=== PATIENT | male | born 1975 | race Caucasian/White ===

== ENCOUNTER 2017-10-26 17:20 | Emergency (ER) | payer BC, OTHER ==
[2017-10-26] MEDS ORDERED: Sodium Chloride 0.9% 10 ML Syringe FLUSH PRN (17:29)
--- NOTE | 2017-10-26 17:29 | EDM.PDOC ---
ED HPI GENERAL MEDICAL PROBLEM - General Chief Complaint: Syncope Stated Complaint: Syncopal episode Time Seen by Provider: 10/26/17 17:20 Source of Information: Reports: Patient, EMS History Limitations: Reports: No Limitations - History of Present Illness INITIAL COMMENTS - FREE TEXT/NARRATIVE: 42 y.o.w.m came to the ed by EMS after he passed out at work. New event. . No trauma. Pt remembers the moment when his coworker looking at him as he was laying on the floor. He is not sure for how long he passed out. This the first time he had a syncopal episode. No tonic clonic movements. As the ems arrived, the patient was OX3, but felt weak. Pt drinks several cups of coffee, coke etc, little water. There was no urinary incontinence, no tongue bite. 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 BP 125/70 Pulse 72 RR 20 Pulse ox 100% Temp was not taken when this note was written. Please check the nursing note. Onset Date: 10/26/17 Onset Time: 16:00 Duration: Minutes:, Improving Location: Reports: Generalized Quality: Reports: Other (passed out at work) Severity: Moderate Improves with: Reports: Rest Worsens with: Reports: Movement Context: Reports: Other (passed out at work) Associated Symptoms: Reports: Syncope - Related Data Allergies Allergy/AdvReac Type Severity Reaction Status Date / Time No Known Allergies Allergy Verified 10/26/17 17:34 Home Meds: Home Meds Levothyroxine 125 mcg PO DAILY 06/02/13 [History] PARoxetine [Paxil] 10 mg PO DAILY 06/02/13 [History] busPIRone [Buspar] 15 mg PO DAILY 10/26/17 [History] hydrOXYzine HCl [Atarax] 50 mg PO DAILY 10/26/17 [History] Social & Family History - Tobacco Use Years of Tobacco use: 21 - Alcohol Use Days Per Week of Alcohol Use: 2 Number of Drinks Per Day: 4 Total Drinks Per Week: 8 - Recreational Drug Use Recreational Drug Use: No ED ROS GENERAL - Review of Systems Review Of Systems: See Below Constitutional: Reports: No Symptoms HEENT: Reports: No Symptoms Respiratory: Reports: No Symptoms Cardiovascular: Reports: No Symptoms Endocrine: Reports: No Symptoms GI/Abdominal: Reports: No Symptoms : Reports: No Symptoms Musculoskeletal: Reports: Muscle Pain, Other (right hip pain) Skin: Reports: No Symptoms Neurological: Reports: No Symptoms Psychiatric: Reports: No Symptoms Hematologic/Lymphatic: Reports: No Symptoms Immunologic: Reports: No Symptoms ED EXAM, NEURO - Physical Exam Exam: See Below Exam Limited By: No Limitations General Appearance: Alert, WD/WN, No Apparent Distress Eye Exam: Bilateral Eye: Normal Inspection Ears: Normal External Exam Nose: Normal Inspection, Normal Mucosa Throat/Mouth: Normal Lips, No Airway Compromise, Other (dry mucosal membranes) Head Exam: Atraumatic, Normocephalic Neck: Normal Inspection, Supple, Non-Tender, Full Range of Motion Respiratory/Chest: No Respiratory Distress, Lungs Clear, Normal Breath Sounds Cardiovascular: Normal Peripheral Pulses, Regular Rate, Rhythm, No Edema GI/Abdominal: Normal Bowel Sounds, Soft, Non-Tender, No Organomegaly (Male) Exam: No Hernia, Normal Inspection Rectal (Males) Exam: Deferred Neurological: Alert, Normal Mood/Affect, Normal Dorsiflexion, CN II-XII Intact, Normal Plantar Flexion, No Motor/Sensory Deficits, Oriented x 3, Other (gait not tested initially) Back Exam: Normal Inspection, Full Range of Motion Extremities: Normal Inspection, Normal Range of Motion, Non-Tender, No Pedal Edema Psychiatric: Normal Affect, Normal Mood Skin Exam: Warm, Dry, Intact, Normal Color, No Rash EKG INTERPRETATION EKG Date: 10/26/17 Time: 19:40 Rhythm: NSR Rate (Beats/Min): 67 [place]: Normal P-Wave: Present QRS: Normal ST-T: Normal QT: Normal Comparison: NA - No Prior EKG Course - Vital Signs Text/Narrative:: 42 y.o.w.m came to the ed by EMS after he passed out at work. New event. . No trauma. Pt remembers the moment when his coworker looking at him as he was laying on the floor. He is not sure for how long he passed out. This the first time he had a syncopal episode. No tonic clonic movements. As the ems arrived, the patient was OX3, but felt weak. Pt drinks several cups of coffee, coke etc, little water. There was no urinary incontinence, no tongue bite. Pt has some discomfort at his right lat hip/trochanter. No F/C no N/V/D or any other acute medical issues. BP 125/70 Pulse 72 RR 20 Pulse ox 100% Temp was not taken when this note was written. Please check the nursing note. PE: 42 y.o.w m s/p syncopal episode. No T/C activity, no Sz like symptoms, feels thirsty, with right hip pain, no open wound. Imaging: Pelvis/right hip: NAD Labs: CBC, BMP UDS were neg. His TSH was 10.38 Impression: Syncopal episode DDx Sz. Elevated TSH level, Trochanter tendonitis ( R) Tx: 2 liters of NS, Toradol Reexam: Pt was doing fine, was amulating fine, pain right hip improved 90% Plan: D/C with instructions Addendum: TSH level came back after pt was d/c'd. I have informed the on 9.02 am Last Recorded V/S: Last Vital Signs Temp 36.6 C 10/26/17 17:20 Pulse 62 10/26/17 19:30 Resp 19 10/26/17 19:30 BP 124/73 10/26/17 19:30 Pulse Ox 100 10/26/17 19:30 - Orders/Labs/Meds Labs: Laboratory Tests 10/26/17 10/26/17 10/26/17 Range/Units 18:00 18:00 18:04 WBC 9.7 (4.5-12.0) X10-3/uL RBC 4.81 (4.30-5.75) x10(6)uL Hgb 14.7 (11.5-15.5) g/dL Hct 42.7 (30.0-51.3) % MCV 88.7 (80-96) fL MCH 30.6 (27.7-33.6) pg MCHC 34.5 (32.2-35.4) g/dL RDW 11.9 (11.5-15.5) % Plt Count 225 (125-369) X10(3)uL MPV 7.8 (7.4-10.4) fL Neut % (Auto) 84.7 H (46-82) % Lymph % (Auto) 10.0 L (13-37) % [place] % (Auto) 4.5 (4-12) % Eos % (Auto) 0 L (1.0-5.0) % Baso % (Auto) 1 (0-2) % Neut # (Auto) 8.2 (1.6-8.3) # Lymph # (Auto) 1.0 (0.6-5.0) # [place] # (Auto) 0.4 (0.0-1.3) # Eos # (Auto) 0.0 (0.0-0.8) # Baso # (Auto) 0.1 (0.0-0.2) # PT (8.7-11.1) INR (0.89-1.13) Sodium (135-145) mmol/L Potassium (3.5-5.3) mmol/L Chloride (100-110) mmol/L Carbon Dioxide (21-32) mmol/L BUN (7-18) mg/dL Creatinine (0.70-1.30) mg/dL Est Cr Clr Drug Dosing Estimated GFR (MDRD) (>60) BUN/Creatinine Ratio (9-20) Glucose (80-116) mg/dL Calcium (8.6-10.2) mg/dL Total Bilirubin (0.1-1.3) mg/dL Direct Bilirubin (0.10-0.20) mg/dL AST (5-25) IU/L ALT (12-36) U/L Alkaline Phosphatase (56-112) IU/L NT-Pro-B Natriuret Pep (<=125) pg/mL Total Protein (6.0-8.0) g/dL Albumin (3.5-5.2) g/dL Amylase (25-115) U/L TSH, Ultra Sensitive (0.36-3.74) IU/mL Urine Color Yellow (YELLOW) Urine Appearance Clear (CLEAR) Urine pH 6.5 (5.0-6.5) Ur Specific [place] 1.020 (1.010-1.025) Urine Protein Negative (NEGATIVE) mg/dL Urine Glucose (UA) Normal (NEGATIVE) mg/dL Urine Ketones Negative (NEGATIVE) mg/dL Urine Occult Blood Negative (NEGATIVE) Urine Nitrite Negative (NEGATIVE) Urine Bilirubin Negative (NEGATIVE) Urine Urobilinogen Normal (NEGATIVE) mg/dL Ur Leukocyte Esterase Negative (NEGATIVE) Urine RBC 0-5 (0) Urine WBC 0-5 (0) Ur Squamous Epith Cells Rare (NS,R,O) Urine Bacteria Few H (NS) Salicylates (2.8-20.0) mg/dL Urine Opiates Screen Negative (NEGATIVE) Ur Oxycodone Screen Negative (NEGATIVE) Ur Propoxyphene Screen Negative (NEGATIVE) Acetaminophen (10-30) ug/mL Ur Barbituates Screen Negative (NEGATIVE) Ur Tricyclics Screen Negative (NEGATIVE) Ur Phencyclidine Scrn Negative (NEGATIVE) Ur Amphetamine Screen Negative (NEGATIVE) Urine MDMA Screen Negative (NEGATIVE) U Benzodiazepines Scrn Negative (NEGATIVE) U Cocaine Metab Screen Negative (NEGATIVE) U Marijuana (THC) Screen Negative (NEGATIVE) Ethyl Alcohol (<0.03) % 10/26/17 10/26/17 10/26/17 Range/Units 18:04 18:04 18:04 WBC (4.5-12.0) X10-3/uL RBC (4.30-5.75) x10(6)uL Hgb (11.5-15.5) g/dL Hct (30.0-51.3) % MCV (80-96) fL MCH (27.7-33.6) pg MCHC (32.2-35.4) g/dL RDW (11.5-15.5) % Plt Count (125-369) X10(3)uL MPV (7.4-10.4) fL Neut % (Auto) (46-82) % Lymph % (Auto) (13-37) % [place] % (Auto) (4-12) % Eos % (Auto) (1.0-5.0) % Baso % (Auto) (0-2) % Neut # (Auto) (1.6-8.3) # Lymph # (Auto) (0.6-5.0) # [place] # (Auto) (0.0-1.3) # Eos # (Auto) (0.0-0.8) # Baso # (Auto) (0.0-0.2) # PT 10.8 (8.7-11.1) INR 1.07 (0.89-1.13) Sodium 137 (135-145) mmol/L Potassium 3.9 (3.5-5.3) mmol/L Chloride 101 (100-110) mmol/L Carbon Dioxide 30 (21-32) mmol/L BUN 12 (7-18) mg/dL Creatinine 1.1 (0.70-1.30) mg/dL Est Cr Clr Drug Dosing TNP Estimated GFR (MDRD) > 60 (>60) BUN/Creatinine Ratio 10.9 (9-20) Glucose 113 (80-116) mg/dL Calcium 9.0 (8.6-10.2) mg/dL Total Bilirubin (0.1-1.3) mg/dL Direct Bilirubin (0.10-0.20) mg/dL AST (5-25) IU/L ALT (12-36) U/L Alkaline Phosphatase (56-112) IU/L NT-Pro-B Natriuret Pep (<=125) pg/mL Total Protein (6.0-8.0) g/dL Albumin (3.5-5.2) g/dL Amylase (25-115) U/L TSH, Ultra Sensitive (0.36-3.74) IU/mL Urine Color (YELLOW) Urine Appearance (CLEAR) Urine pH (5.0-6.5) Ur Specific [place] (1.010-1.025) Urine Protein (NEGATIVE) mg/dL Urine Glucose (UA) (NEGATIVE) mg/dL Urine Ketones (NEGATIVE) mg/dL Urine Occult Blood (NEGATIVE) Urine Nitrite (NEGATIVE) Urine Bilirubin (NEGATIVE) Urine Urobilinogen (NEGATIVE) mg/dL Ur Leukocyte Esterase (NEGATIVE) Urine RBC (0) Urine WBC (0) Ur Squamous Epith Cells (NS,R,O) Urine Bacteria (NS) Salicylates 2.5 L (2.8-20.0) mg/dL Urine Opiates Screen (NEGATIVE) Ur Oxycodone Screen (NEGATIVE) Ur Propoxyphene Screen (NEGATIVE) Acetaminophen < 2 L (10-30) ug/mL Ur Barbituates Screen (NEGATIVE) Ur Tricyclics Screen (NEGATIVE) Ur Phencyclidine Scrn (NEGATIVE) Ur Amphetamine Screen (NEGATIVE) Urine MDMA Screen (NEGATIVE) U Benzodiazepines Scrn (NEGATIVE) U Cocaine Metab Screen (NEGATIVE) U Marijuana (THC) Screen (NEGATIVE) Ethyl Alcohol < 0.03 (<0.03) % 10/26/17 10/26/17 10/26/17 Range/Units 18:04 18:04 18:04 WBC (4.5-12.0) X10-3/uL RBC (4.30-5.75) x10(6)uL Hgb (11.5-15.5) g/dL Hct (30.0-51.3) % MCV (80-96) fL MCH (27.7-33.6) pg MCHC (32.2-35.4) g/dL RDW (11.5-15.5) % Plt Count (125-369) X10(3)uL MPV (7.4-10.4) fL Neut % (Auto) (46-82) % Lymph % (Auto) (13-37) % [place] % (Auto) (4-12) % Eos % (Auto) (1.0-5.0) % Baso % (Auto) (0-2) % Neut # (Auto) (1.6-8.3) # Lymph # (Auto) (0.6-5.0) # [place] # (Auto) (0.0-1.3) # Eos # (Auto) (0.0-0.8) # Baso # (Auto) (0.0-0.2) # PT (8.7-11.1) INR (0.89-1.13) Sodium (135-145) mmol/L Potassium (3.5-5.3) mmol/L Chloride (100-110) mmol/L Carbon Dioxide (21-32) mmol/L BUN (7-18) mg/dL Creatinine (0.70-1.30) mg/dL Est Cr Clr Drug Dosing Estimated GFR (MDRD) (>60) BUN/Creatinine Ratio (9-20) Glucose (80-116) mg/dL Calcium (8.6-10.2) mg/dL Total Bilirubin 0.6 (0.1-1.3) mg/dL Direct Bilirubin 0.12 (0.10-0.20) mg/dL AST 31 H (5-25) IU/L ALT 32 (12-36) U/L Alkaline Phosphatase 98 (56-112) IU/L NT-Pro-B Natriuret Pep 225 H (<=125) pg/mL Total Protein 7.9 (6.0-8.0) g/dL Albumin 3.7 (3.5-5.2) g/dL Amylase 45 (25-115) U/L TSH, Ultra Sensitive 10.38 H* (0.36-3.74) IU/mL Urine Color (YELLOW) Urine Appearance (CLEAR) Urine pH (5.0-6.5) Ur Specific [place] (1.010-1.025) Urine Protein (NEGATIVE) mg/dL Urine Glucose (UA) (NEGATIVE) mg/dL Urine Ketones (NEGATIVE) mg/dL Urine Occult Blood (NEGATIVE) Urine Nitrite (NEGATIVE) Urine Bilirubin (NEGATIVE) Urine Urobilinogen (NEGATIVE) mg/dL Ur Leukocyte Esterase (NEGATIVE) Urine RBC (0) Urine WBC (0) Ur Squamous Epith Cells (NS,R,O) Urine Bacteria (NS) Salicylates (2.8-20.0) mg/dL Urine Opiates Screen (NEGATIVE) Ur Oxycodone Screen (NEGATIVE) Ur Propoxyphene Screen (NEGATIVE) Acetaminophen (10-30) ug/mL Ur Barbituates Screen (NEGATIVE) Ur Tricyclics Screen (NEGATIVE) Ur Phencyclidine Scrn (NEGATIVE) Ur Amphetamine Screen (NEGATIVE) Urine MDMA Screen (NEGATIVE) U Benzodiazepines Scrn (NEGATIVE) U Cocaine Metab Screen (NEGATIVE) U Marijuana (THC) Screen (NEGATIVE) Ethyl Alcohol (<0.03) % Meds: Medications Discontinued Medications Generic Name Dose Route Start Last Admin Trade Name Freq PRN Reason Stop Dose Admin Sodium Chloride 1,000 mls @ 999 mls/hr 10/26/17 17:32 10/26/17 17:50 Normal Saline IV 10/26/17 18:32 999 mls/hr .BOLUS ONE Administration Sodium Chloride 1,000 mls @ 999 mls/hr 10/26/17 19:08 10/26/17 18:55 Normal Saline IV 10/26/17 20:08 999 mls/hr .BOLUS ONE Administration Ketorolac Tromethamine 30 mg 10/26/17 18:59 10/26/17 19:06 Toradol IVPUSH 10/26/17 19:00 30 mg ONETIME ONE Administration Sodium Chloride 10 ml 10/26/17 17:29 Saline Flush FLUSH ASDIRECTED PRN Keep Vein Open Departure - Departure Time of Disposition: 20:28 Disposition: Home, Self-Care 01 Condition: Good Clinical Impression: Vasovagal syncope, Dehydration, Trochanteric tendinitis of right hip - Discharge Information Instructions: Rehydration, Adult, Syncope Referrals: PCP,Not In Area [Primary Care Provider] - Forms: ED Department Discharge, ED Return to Work/School Form Additional Instructions: Please apply Ice to right hip, Motrin for pain please f/u, increase water intake , cut on coffee and juice, pepsi, please come back to the ED if your symptoms get worse acutely
[2017-10-26] MEDS ORDERED: Sodium Chloride 0.9% 1,000 ML IV ONE ×2 (17:32→19:08)
[2017-10-26 18:57] LABS: ACETAMINOPHEN < 2 ug/mL (10-30)
[2017-10-26] MEDS ORDERED: Ketorolac 30 MG/ML SDV IVPUSH ONE (18:59)
[2017-10-26 21:33] VITALS: BP 124/73
--- NOTE | 2017-10-28 07:57 | CR ---
INDICATION: Fell, right hip pain. PELVIS WITH RIGHT HIP: Frontal view of the pelvis and frontal and lateral views , numbering three, of the right hip revealed no evidence of a fracture, dislocation, or other significant appearing bone or joint abnormality, except for an appearance suggesting diminished bone density. This could be on the basis of osteomalacia or osteoporosis and should be correlated clinically. If symptoms persist - if occult fracture site is suspected clinically, re- examination is recommended in 10 to 14 days. MTDD
== END 2017-10-26 20:43 | disposition home or self-care (01) ==
LOC: FB.ED 17:20
DX: R55 Syncope and collapse (principal); E86.0 Dehydration; M70.61 Trochanteric bursitis, right hip; R94.6 Abnormal results of thyroid function studies; Z79.899 Other long term (current) drug therapy
CPT/HCPCS: 36415; 73502; 80048; 80076; 80305; 81001; 82150; 83880; 84443; 85025; 85610; 93005; 96361; 96374; 99284; G0480; J1885; J7040

== ENCOUNTER 2019-01-29 00:05 | Emergency (ER) | payer OTHER ==
[2019-01-29] MEDS ORDERED: Ciprofloxacin 500 MG Tab PO ONE (00:24)
[2019-01-29] MEDS ORDERED: Diphtheria,Pertussis(Acell),Tetanus Vaccine 0.5 ML SDV IM ONE (00:24)
--- NOTE | 2019-01-29 00:34 | EDM.PDOC ---
ED HPI GENERAL MEDICAL PROBLEM - General Stated Complaint: HURT TOE Time Seen by Provider: 01/29/19 00:10 Source of Information: Reports: Patient History Limitations: Reports: No Limitations - History of Present Illness INITIAL COMMENTS - FREE TEXT/NARRATIVE: 44-year-old male who states at approximately 8 PM tonight he stepped on a nail with his left foot. The nail went through his boot into his medial plantar left foot. The nail came out easily and he reports increasing pain in his left foot since that time. He went to work and his job requires that he walks quite a bit and he was unable to do this secondary to the pain. He reports his pain is a 4/10 now at rest and a 9/10 when he tries to bear weight and walk. The pain is a sharp pain and throbbing. There were no other injuries. There are no other associated signs or symptoms. There are no other modifying factors. Onset: Today (8 PM) Duration: Constant, Getting Worse Location: Reports: Lower Extremity, Left (left foot) Quality: Reports: Ache, Sharp, Throbbing Severity: Moderate Improves with: Reports: Rest Worsens with: Reports: Other (walking and with palpation), Movement Context: Reports: Activity (stepped on nail) Associated Symptoms: Reports: No Other Symptoms Treatments EP TECH: Reports: Other (see below) (nothing) - Related Data Allergies Allergy/AdvReac Type Severity Reaction Status Date / Time No Known Allergies Allergy Verified 01/29/19 01:14 Home Meds: Home Meds Levothyroxine 125 mcg PO DAILY 06/02/13 [History] PARoxetine [Paxil] 10 mg PO DAILY 06/02/13 [History] busPIRone [Buspar] 15 mg PO DAILY 10/26/17 [History] hydrOXYzine HCl [Atarax] 50 mg PO DAILY 10/26/17 [History] .Ageless Male 1 tab PO DAILY 06/15/18 [History] Gluc HCl/Csa/Gracy Hy/Hyalur Ac [Glucosamine Chondroitin] 1 tab PO DAILY [History] Multivitamin [Multivitamins] 1 tab PO DAILY 06/15/18 [History] Ciprofloxacin HCl [Cipro] 500 mg PO BID 5 Days #10 tablet 01/29/19 [Rx] Past Medical History Neurological History: Reports: Seizure (2 last year, thought to be related to energy drink usage) Psychiatric History: Reports: Depression, Other (See Below) (Tourette's syndrome ) Endocrine/Metabolic History: Reports: Hypothyroidism - Past Surgical History HEENT Surgical History: Reports: Oral Surgery (dental extractions) Musculoskeletal Surgical History: Reports: ORIF (left wrist) Social & Family History - Tobacco Use Smoking Status *Q: Current Every Day Smoker - Caffeine Use Caffeine Use: Reports: Coffee, Energy Drinks, Soda - Alcohol Use Alcohol Use History: Yes Alcohol Use Frequency: Socially - Living Situation & Occupation Occupation: Employed (at [employer]) Review of Systems - Review of Systems Review Of Systems: See Below Constitutional: Reports: No Symptoms Eyes: Reports: No Symptoms Ears: Reports: No Symptoms Nose: Reports: No Symptoms Mouth/Throat: Reports: No Symptoms Respiratory: Reports: No Symptoms Cardiovascular: Reports: No Symptoms GI/Abdominal: Reports: No Symptoms Genitourinary: Reports: No Symptoms Musculoskeletal: Reports: Foot Pain (left foot) Skin: Reports: Other (puncture wound to left plantar foot over the distal first metatarsal area) Neurological: Reports: No Symptoms ED EXAM, GENERAL - Physical Exam Exam: See Below Exam Limited By: No Limitations General Appearance: Alert, WD/WN, Mild Distress Eye Exam: Bilateral Eye: EOMI, Normal Inspection Ears: Normal External Exam, Hearing Grossly Normal Ear Exam: Bilateral Ear: Auricle Normal Nose: Normal Inspection Throat/Mouth: Normal Inspection, Normal Oropharynx, Normal Voice, No Airway Compromise Head: Atraumatic, Normocephalic Neck: Normal Inspection, Supple, Non-Tender, Full Range of Motion Respiratory/Chest: No Respiratory Distress, Lungs Clear, Normal Breath Sounds, No Accessory Muscle Use, Chest Non-Tender Cardiovascular: Normal Peripheral Pulses, Regular Rate, Rhythm, No JVD Peripheral Pulses: 2+: Dorsalis Pedis (L), Dorsalis Pedis (R) GI/Abdominal: Normal Bowel Sounds, Soft, Non-Tender, No Mass Back Exam: Normal Inspection Extremities: Normal Range of Motion, Normal Capillary Refill, Other (tenderness to palpation over the anterior distal first metatarsal area of the left foot. No crepitus or bony deformity noted.) Skin Exam: Warm, Dry, Normal Color, Other (puncture wound over the left plantar foot at the distal first metatarsal area.) Course - Orders/Labs/Meds Orders: Active Orders 24 hr Category Date Time Status Vaccines to be Administered [RC] PER UNIT ROUTINE Care 01/29/19 00:24 Active Foot Comp Min 3V Lt [CR] Stat Exams 01/29/19 00:24 Taken Meds: Medications Discontinued Medications Generic Name Dose Route Start Last Admin Trade Name Darryl PRN Reason Stop Dose Admin Ciprofloxacin 500 mg 01/29/19 00:24 01/29/19 00:39 Ciprofloxacin Hcl PO 01/29/19 00:25 500 mg ONETIME ONE Administration Diphtheria/Tetanus/Acell Pertussis 0.5 ml 01/29/19 00:24 01/29/19 00:40 Adacel IM 01/29/19 00:25 0.5 ml .ONCE ONE Administration - Radiology Interpretation Free Text/Narrative:: x-ray of left foot showed no acute abnormalities. - Re-Assessments/Exams Free Text/Narrative Re-Assessment/Exam: 01/29/19 01:06: The x-ray of the patient's left foot showed no acute abnormality per my read. It is possible that he did receive a puncture wound to the bone of the first metatarsal or to the periosteum area of the same bone. He was given ciprofloxacin 500 mg by mouth. I will place him on ciprofloxacin 500 mg by mouth twice daily for 5 days to treat for potential contamination/ infection. I have told the patient to not take his Vistaril for the next 5 days while he is taking the ciprofloxacin. I have also told him to say off of his left foot as much as possible for the next 2 days and elevate it as often as possible. Departure - Departure Time of Disposition: 01:10 Disposition: Home, Self-Care 01 Condition: Good Clinical Impression: Puncture wound of left foot Qualifiers: Encounter type: initial encounter Qualified Code(s): S91.332A - Puncture wound without foreign body, left foot, initial encounter - Discharge Information Prescriptions: Ciprofloxacin HCl [Cipro] 500 mg PO BID 5 Days #10 tablet Instructions: Puncture Wound, [id number] Forms: ED Return to Work/School Form Additional Instructions: The x-ray of your left foot showed no definite fracture or grover injury. It is still possible that you had a scrape or puncture to a bone in your left foot as we discussed. I have placed you on an antibiotic to treat for this possibility (ciprofloxacin). You should not take your Vistaril for the next 5-6 days (while you are on the ciprofloxacin). You can take ibuprofen and Tylenol as needed for your pain. Try to stay off of your left foot for the next 2 days and elevate her left foot as often as possible. No work until 01/31/2019. Back to the emergency department for redness, fever, worsening pain or any other concerning sign or symptom. You were given a TD Immunization today to bring her tetanus immunization status up-to-date. - My Orders Last 24 Hours: My Active Orders 01/29/19 00:24 Vaccines to be Administered [RC] PER UNIT ROUTINE Foot Comp Min 3V Lt [CR] Stat - Assessment/Plan Last 24 Hours: My Active Orders 01/29/19 00:24 Vaccines to be Administered [RC] PER UNIT ROUTINE Foot Comp Min 3V Lt [CR] Stat
[2019-01-29 01:49] VITALS: BP 144/82
== END 2019-01-29 01:20 | disposition home or self-care (01) ==
LOC: FB.ED 00:05
DX: S91.332A Puncture wound without foreign body, left foot, initial encounter (principal); F17.200 Nicotine dependence, unspecified, uncomplicated; E03.9 Hypothyroidism, unspecified; W45.0XXA Nail entering through skin, initial encounter; Z23 Encounter for immunization; Z79.899 Other long term (current) drug therapy
CPT/HCPCS: 73630; 90471; 90715; 99283; A9270

== ENCOUNTER 2022-05-12 09:36 | Emergency (ER) | payer OTHER ==
[2022-05-12 16:05] VITALS: BP 129/90; PULSE 81
== END 2022-05-12 12:01 | disposition home or self-care (01) ==
LOC: FB.ED 09:36
DX: S00.81XA Abrasion of other part of head, initial encounter (principal); F17.210 Nicotine dependence, cigarettes, uncomplicated; W22.09XA Striking against other stationary object, initial encounter
CPT/HCPCS: 70450; 99000; 99284